=== PATIENT | male | born 1960 | race Caucasian/White ===

== ENCOUNTER 2020-01-01 14:01 | Emergency (ER) | payer OTHER, SELFPAY ==
[2020-01-01 14:20] VITALS: BP 116/80; PULSE 79; RESP 18; TEMP 36.9; O2SAT 100
--- NOTE | 2020-01-01 14:22 | ED.GENADULT ---
HPI - General Adult General Chief complaint: Wound/Laceration Stated complaint: Laceration left leg Time Seen by Provider: 01/01/20 14:22 Source: patient, family (spouse) and RN notes reviewed Mode of arrival: ambulatory Limitations: no limitations, altered mental status (head injury-04/2019) and dementia History of Present Illness HPI narrative: 59-year-old male presents with complaints of laceration to left lateral knee, caused by hitting knee on license plate 1.5 hours ago. Spouse says Dante was walking into the house with a case of water when he fell and cut leg on license plate. History of falls due to old head injury in 2019 and Hydrocephalus per spouse. Clean wound, pressure applied to control bleeding, and Neosporin applied. Denies hitting head and loss of consciousness. Denies focal weakness, altered sensation, rash, fever or chills. Denies pain, numbness or tingling, or loss of mobility. No foreign body sensation. Tetanus up-to-date, last per spouse 04/2019. Denies headaches, seizure activities, weakness, fatigue, or myalgia. The patient reports he have not been diagnosed with COVID-19. The patient reports he is not waiting for the results of a COVID-19 lab test. The patient reports he do not have a new or worsening cough or shortness of breath. Denies chest pain. The patient reports he do not have any rhinorrhea, congestion, sore throat, nausea, vomiting, abdominal pain, and diarrhea. Tolerating po intake well. Denies recent traveling. Denies concerns for COVID-19 or exposures been home with limited outdoor exposure except for essential household needs and return home. At this time, patient is not suspected of having COVID-19. Some parts of this dictation were generated by voice recognition software and may contain typographical and/or grammatical inaccuracies. Related Data Home Medications Medication Instructions Recorded Confirmed alprazolam 01/01/20 atorvastatin 01/01/20 cyclobenzaprine mg 01/01/20 01/01/20 ibuprofen 01/01/20 Allergies Allergy/AdvReac Type Severity Reaction Status Date / Time No Known Allergies Allergy Unverified 01/01/20 14:22 Review of Systems Review of Systems: Narrative: CONSTITUTIONAL: Denies fever, chills, sweats. EYES: Denies visual changes, redness, discharge. ENT: Denies rhinorrhea, congestion, sore throat, otalgia. CARDIOVASCULAR: Denies chest pain, palpitations, edema. RESPIRATORY: Denies dyspnea, wheezing, cough. GASTROINTESTINAL: Denies abdominal pain, nausea, vomiting, diarrhea. GENITOURINARY: Denies dysuria, hematuria, abnormal discharge. SKIN: Denies rash or itching. Complaints of laceration to left lateral knee. MUSCULOSKELETAL: Denies acute back pain, joint pain, or myalgia. NEUROLOGIC: Denies numbness or focal weakness. PSYCHIATRIC: Denies anxiety or depression. All other systems reviewed are negative, except as documented in HPI and below. [facility] Past Medical History Medical History (Updated 01/01/20 @ 14:55 by TRISTON [place]) Anxiety Degenerative disc disease Dementia Hydrocephalus Hypercholesteremia Vestibular disorder Surgical History Surgical History (Updated 01/01/20 @ 14:55 by TRISTON [place]) History of tonsillectomy Family History Family History (Updated 01/01/20 @ 14:55 by TRISTON [place]) Father Acute myocardial infarction Mother Dementia Social History Social History (Updated 01/01/20 @ 14:56 by TRISTON [place]) Smoking status: Never smoker Tobacco type: cigarettes Second hand tobacco smoke exposure: No Alcohol intake: never Substance use: never Living arrangements: with family Occupation/Education: retired Additional occupation/education comments: Disable Gender identity (if verbalized by the patient): Male Sexual Orientation (if Verbalized by the Patient): Straight or Heterosexual Comments At time of signature, agree with nurse darío
== END 2020-01-01 14:50 | disposition home or self-care (01) ==
PROVIDERS: Emergency Provider Nurse Practitioner Family; PCP Family Medicine
DX: S81.012A Laceration without foreign body, left knee, initial encounter (principal); F41.9 Anxiety disorder, unspecified; F03.90 Unspecified dementia, unspecified severity, without behavioral disturbance, psychotic disturbance, mood disturbance, and anxiety; Z79.1 Long term (current) use of non-steroidal anti-inflammatories (NSAID); W26.8XXA Contact with other sharp object(s), not elsewhere classified, initial encounter
CPT/HCPCS: 12002; 99212; G0463

== ENCOUNTER → 2020-09-18 06:56 | Outpatient (CLI) | payer OTHER, SELFPAY ==
--- NOTE | ~2020-09-18 | XR_ITS ---
XR cervical spine 4-5V DATE: 09/18/2020 07:50 INDICATION: Fall. Neck pain. TECHNIQUE: AP, open-mouth, odontoid, lateral and swimmer views COMPARISON: 03/10/2016 cervical spine FINDINGS: There is straightening of the cervical spine C1 and C2 are normally aligned and the odontoid process is intact. No fracture or dislocation, locked facet or prevertebral soft tissue swelling is evident. There is mild anterolisthesis and mild degenerative disc disease at C4-5. There is severe degenerative disc disease and approximately 2.8 mm retrolisthesis at C5-6. There is severe degenerative disease at C6-7. There is degenerative change at the apophyseal joints. There is uncovertebral joint spurring, particularly prominent at C5-6 and C6-7 bilaterally. IMPRESSION: Straightening Mild degenerative disc disease and mild anterolisthesis at C4-5, stable since 03/10/2016 Severe degenerative disc disease and approximately 2.8 mm retrolisthesis at C5-6, stable since 2015 Severe degenerative disc disease at C6-7, stable Reviewed, dictated and finalized at location A. IMPRESSION: Straightening Mild degenerative disc disease and mild anterolisthesis at C4-5, stable since 1 Severe degenerative disc disease and approximately 2.8 mm retrolisthesis at C5- 6, stable since 03/10/2016 Severe degenerative disc disease at C6-7, stable
== END ==
PROVIDERS: PCP Physician Assistant; Visit Provider Physician Assistant
DX: M62.838 Other muscle spasm (principal); M50.323 Other cervical disc degeneration at C6-C7 level
CPT/HCPCS: 72050